=== PATIENT | male | born 1980 | race African-American/Black ===

== ENCOUNTER 2020-02-18 18:12 | Emergency (ER) | payer SELFPAY ==
[~2020-02-18] VITALS: Ht 180.3 cm; Wt 80.0 kg
[2020-02-18] MEDS ORDERED: FLUORESCEIN SODIUM 1MG/STRIP BOTHEYE ONE (18:45)
[2020-02-18 19:07] VITALS: BP 148/82
== END 2020-02-18 19:07 | disposition home or self-care (01) ==
LOC: ER 18:12
DX: H05.011 Cellulitis of right orbit (principal); Z88.1 Allergy status to other antibiotic agents
CPT/HCPCS: 99283

== ENCOUNTER 2020-03-09 20:20 | Emergency (ER) | payer MEDICAID ==
[~2020-03-09] VITALS: Ht 180.3 cm; Wt 81.0 kg
[2020-03-09 20:46] VITALS: BP 112/65
[2020-03-09] MEDS ORDERED: IBUPROFEN 800MG TABLET PO ONE (21:45)
== END 2020-03-09 22:08 | disposition home or self-care (01) ==
LOC: ER 20:20
DX: H05.011 Cellulitis of right orbit (principal); Z88.1 Allergy status to other antibiotic agents
CPT/HCPCS: 99283

== ENCOUNTER 2020-07-30 19:04 | Emergency (ER) | payer BC ==
[~2020-07-30] VITALS: Ht 180.3 cm; Wt 80.0 kg
[2020-07-30] MEDS ORDERED: IBUPROFEN 600MG TABLET PO ONE (21:30)
[2020-07-30 21:41] LABS: CLARITY URINE CLEAR (CLEAR); COLOR URINE YELLOW (YELLOW); KETONES URINE TRACE (NEGATIVE); LEUKOCYTE ESTERASE URINE NEGATIVE (NEGATIVE); NITRITE URINE NEGATIVE (NEGATIVE); OCCULT BLOOD URINE TRACE (NEGATIVE); PROTEIN URINE NEGATIVE (NEGATIVE); SPECIFIC GRAVITY URINE 1.028 (1.005-1.030); UROBILINOGEN URINE 0.2 E.U./dL (0.2-1.0)
[2020-07-30] MEDS ORDERED: IBUP-2029 MT (23:02)
[2020-07-30] MEDS ORDERED: CYCL10TA7 MT (23:02)
[2020-07-30 23:28] VITALS: BP 123/66
== END 2020-07-31 00:05 | disposition home or self-care (01) ==
LOC: ER 19:04
DX: S30.0XXA Contusion of lower back and pelvis, initial encounter (principal); R30.0 Dysuria; Z88.1 Allergy status to other antibiotic agents; W18.40XA Slipping, tripping and stumbling without falling, unspecified, initial encounter; Y93.89 Activity, other specified; Y92.89 Other specified places as the place of occurrence of the external cause; Y99.8 Other external cause status
CPT/HCPCS: 72070; 72100; 81003; 99284

== ENCOUNTER 2020-10-07 14:56 | Emergency (ER) | payer SELFPAY ==
[~2020-10-07] VITALS: Ht 180.3 cm; Wt 79.0 kg
[~2020-10-07 14:56] MED LIST: CYCL10TA7 MT; IBUP-2029 MT
[2020-10-07] MEDS ORDERED: GABA-529 PO (15:04)
[2020-10-07] MEDS ORDERED: P-EP1TBM2 MT (18:03)
[2020-10-07 18:43] VITALS: BP 127/80
== END 2020-10-07 18:44 | disposition home or self-care (01) ==
LOC: ER 14:56
DX: G62.9 Polyneuropathy, unspecified (principal); G54.0 Brachial plexus disorders; R03.0 Elevated blood-pressure reading, without diagnosis of hypertension; R94.31 Abnormal electrocardiogram [ECG] [EKG]
CPT/HCPCS: 93005; 99283

== ENCOUNTER 2020-10-27 18:44 | Emergency (ER) | payer BC ==
[~2020-10-27] VITALS: Ht 180.3 cm; Wt 81.0 kg
[~2020-10-27 18:44] MED LIST changes: +GABA-529 PO; +P-EP1TBM2 MT
[2020-10-27] MEDS ORDERED: KETOROLAC 60MG/2ML VIAL IM ONE (19:15)
[2020-10-27] MEDS ORDERED: IBUP-2029 MT (19:38)
[2020-10-27] MEDS ORDERED: CYCL10TA7 MT (19:39)
[2020-10-27 19:45] VITALS: BP 121/69
== END 2020-10-27 19:45 | disposition home or self-care (01) ==
LOC: ER 18:44
DX: M54.5 Low back pain (principal); Z88.1 Allergy status to other antibiotic agents
CPT/HCPCS: 71045; 96372; 99283; J1885

== ENCOUNTER 2020-12-04 12:05 | Emergency (ER) | payer BC ==
[~2020-12-04] VITALS: Ht 180.3 cm; Wt 78.0 kg
[2020-12-04 12:37] VITALS: BP 109/66
[2020-12-04] MEDS ORDERED: TC1U15 TP (13:07)
[2020-12-04] MEDS ORDERED: ACETAMINOPHEN 325MG TABLET PO ONE (13:15)
[2020-12-04] MEDS ORDERED: IBUPROFEN 400MG TABLET PO ONE (13:15)
== END 2020-12-04 13:58 | disposition home or self-care (01) ==
LOC: ER 12:05
DX: R21 Rash and other nonspecific skin eruption (principal); Z79.899 Other long term (current) drug therapy
CPT/HCPCS: 99283

== ENCOUNTER 2021-04-06 19:34 | Emergency (ER) | payer BC ==
[~2021-04-06] VITALS: Ht 180.3 cm; Wt 80.0 kg
[~2021-04-06 19:34] MED LIST changes: +TC1U15 TP
[2021-04-06] MEDS ORDERED: ACETAMINOPHEN 325MG TABLET PO ONE (20:00)
[2021-04-06] MEDS ORDERED: ALBU6.7H9 INH (23:14)
[2021-04-06] MEDS ORDERED: IBUP-2029 MT (23:14)
[2021-04-06 23:26] VITALS: BP 128/80
== END 2021-04-06 23:28 | disposition home or self-care (01) ==
LOC: ER 19:34
DX: B34.9 Viral infection, unspecified (principal); I10 Essential (primary) hypertension; Z20.822 Contact with and (suspected) exposure to COVID-19; Z88.1 Allergy status to other antibiotic agents; Z13.9 Encounter for screening, unspecified
CPT/HCPCS: 71045; 87426; 87804; 93005; 99285

== ENCOUNTER 2021-07-06 16:29 | Emergency (ER) | payer SELFPAY ==
[~2021-07-06] VITALS: Ht 180.3 cm; Wt 80.0 kg
[~2021-07-06 16:29] MED LIST changes: +ALBU6.7H9 INH
[2021-07-06] MEDS ORDERED: CLIN150C2 MT (18:14)
[2021-07-06] MEDS ORDERED: IBUP-2028 MT (18:14)
[2021-07-06] MEDS ORDERED: CLINDAMYCIN HCL 150MG CAPSULE PO ONE (18:15)
[2021-07-06] MEDS ORDERED: IBUPROFEN 400MG TABLET PO ONE (18:15)
[2021-07-06 19:02] VITALS: BP 108/56
== END 2021-07-06 19:04 | disposition home or self-care (01) ==
LOC: ER 16:29
DX: L03.213 Periorbital cellulitis (principal); Z88.1 Allergy status to other antibiotic agents; Z79.899 Other long term (current) drug therapy
CPT/HCPCS: 99283

== ENCOUNTER 2021-10-25 09:47 | Emergency (ER) | payer MEDICAID ==
[~2021-10-25] VITALS: Ht 180.3 cm; Wt 80.0 kg
[~2021-10-25 09:47] MED LIST changes: +CLIN150C2 MT; +CYCL10TA21 MT; -CYCL10TA7 MT; +IBUP-2028 MT
[2021-10-25 09:59] VITALS: BP 126/90
[2021-10-25 12:48] LABS: BASOPHILS % 1.1 % (0.0-2.0); EOSINOPHILS % 1.5 % (0.0-5.0); HEMATOCRIT. 47.9 % (42.0-52.0); HEMOGLOBIN. 15.8 g/dL (14.0-18.0); LYMPHOCYTES % 44.3 % (20.0-50.0); MEAN CORPUSCULAR HEMOGLOBIN 26.9 pg (28.0-32.0); MEAN CORPUSCULAR VOLUME 81.3 fL (80.0-94.0); MEAN PLATELET VOLUME 8.5 fl (7.4-10.4); NEUTROPHILS % 46.1 % (40.0-76.0); PLATELET 319 x1000/uL (130-400); RED BLOOD CELL COUNT 5.89 mill/uL (4.7-6.1); RED CELL DISTRIBUTION WIDTH 13.9 % (11.6-14.6)
[2021-10-25 12:57] LABS: CHLORIDE 99 mEq/L (98-107)
[2021-10-25] MEDS ORDERED: TC1U15 TP (13:39)
== END 2021-10-25 13:46 | disposition home or self-care (01) ==
LOC: ER 09:56
DX: R07.2 Precordial pain (principal)
CPT/HCPCS: 36415; 71045; 80053; 84484; 85025; 85379; 93005; 99285

== ENCOUNTER 2023-06-23 17:07 | Emergency (ER) | payer MEDICAID ==
[~2023-06-23] VITALS: Ht 180.3 cm; Wt 83.0 kg
[~2023-06-23 17:07] MED LIST changes: +ALBU6.7H3 INH; -ALBU6.7H9 INH; +DESL1TBM MT; -P-EP1TBM2 MT
[2023-06-23 17:34] VITALS: BP 123/74; PULSE 83; RESP 18; TEMP 98.5; O2SAT 100
[2023-06-23] MEDS: IBUPROFEN 400MG TABLET PO ONE (18:35)
== END 2023-06-23 23:11 | disposition home or self-care (01) ==
LOC: ER 17:07
DX: M79.671 Pain in right foot (principal); M25.571 Pain in right ankle and joints of right foot; Z79.899 Other long term (current) drug therapy
CPT/HCPCS: 73610; 73650; 73700; 29515; 99284; Z7610

== ENCOUNTER 2023-07-04 22:51 | Emergency (ER) | payer MEDICAID ==
[~2023-07-04] VITALS: Ht 180.3 cm; Wt 84.0 kg
[2023-07-04 23:12] VITALS: BP 134/74; PULSE 72; RESP 16; TEMP 97.8; O2SAT 100
== END 2023-07-05 01:19 | disposition home or self-care (01) ==
LOC: ER 22:51
DX: M79.606 Pain in leg, unspecified (principal); Z88.8 Allergy status to other drugs, medicaments and biological substances; W18.39XA Other fall on same level, initial encounter; Y93.89 Activity, other specified; Y92.89 Other specified places as the place of occurrence of the external cause; Y99.8 Other external cause status
CPT/HCPCS: 99281

== ENCOUNTER 2023-10-17 14:48 | Emergency (ER) | payer MEDICAID ==
[~2023-10-17] VITALS: Ht 180.3 cm; Wt 83.0 kg
[2023-10-17 14:50] VITALS: BP 132/75; RESP 16; TEMP 98.3; O2SAT 100
[2023-10-17 14:52] VITALS: PULSE 92
[2023-10-17] MEDS ORDERED: NAPR-679 MT (15:12)
[2023-10-17] MEDS ORDERED: HYDR-4001 MT (15:12)
[2023-10-17] MEDS ORDERED: PENI500T MT (15:12)
[2023-10-17] MEDS ORDERED: [UNRECOGNIZED DRUG - CODE] MT (15:16)
== END 2023-10-17 15:28 | disposition home or self-care (01) ==
LOC: ER 14:48
DX: K02.9 Dental caries, unspecified (principal); Z88.1 Allergy status to other antibiotic agents; Z79.899 Other long term (current) drug therapy
CPT/HCPCS: 99283

== ENCOUNTER 2023-12-04 05:28 | Emergency (ER) | payer OTHER, MEDICAID ==
[~2023-12-04] VITALS: Ht 175.3 cm; Wt 82.0 kg
[~2023-12-04 05:28] MED LIST changes: +HYDR-4001 MT; +NAPR-679 MT; +PENI500T MT; +[UNRECOGNIZED DRUG - CODE] MT
[2023-12-04 05:37] VITALS: O2SAT 100
[2023-12-04] MEDS: IBUPROFEN 600MG TABLET PO ONE (06:30)
[2023-12-04 07:34] VITALS: BP 121/78; PULSE 86; RESP 16; TEMP 37.00296; O2SAT 100
== END 2023-12-04 07:33 | disposition home or self-care (01) ==
LOC: ER 05:28
DX: M25.561 Pain in right knee (principal); M25.562 Pain in left knee; Z79.899 Other long term (current) drug therapy; Z88.0 Allergy status to penicillin
CPT/HCPCS: 73562; 99284

== ENCOUNTER 2024-02-07 02:07 | Emergency (ER) | payer OTHER, MEDICAID ==
[~2024-02-07] VITALS: Ht 172.7 cm; Wt 82.0 kg
[2024-02-07 02:44] VITALS: O2SAT 98
[2024-02-07 03:48] LABS: BASOPHILS % 0.9 % (0.0-2.0); EOSINOPHILS % 2.2 % (0.0-5.0); HEMATOCRIT. 41.3 % (42.0-52.0); LYMPHOCYTES % 42.7 % (20.0-50.0); MEAN CORPUSCULAR HEMOGLOBIN 27.8 pg (28.0-32.0); MEAN CORPUSCULAR HGB CONC 33.9 g/dL (31.0-37.0); MEAN CORPUSCULAR VOLUME 82.2 fL (80.0-94.0); MEAN PLATELET VOLUME 8.2 fl (7.4-10.4); MONOCYTES % 6.2 % (2.0-8.0); PLATELET 295 x1000/uL (130-400); RED BLOOD CELL COUNT 5.03 mill/uL (4.7-6.1); RED CELL DISTRIBUTION WIDTH 14.5 % (11.6-14.6); WHITE BLOOD COUNT 6.6 x1000/uL (4.5-11.0)
[2024-02-07 03:52] LABS: CHLORIDE 104 mEq/L (98-107); POTASSIUM 4.2 mEq/L (3.5-5.1); SODIUM 141 mEq/L (136-145)
[2024-02-07 03:53] LABS: CARBON DIOXIDE 33 mEq/L (21-32)
[2024-02-07 03:54] LABS: CALCIUM 9.7 mg/dL (8.7-10.4)
[2024-02-07 03:59] LABS: CREATININE 1.2 mg/dL (0.6-1.3); GLUCOSE 103 mg/dL (70-105); UREA NITROGEN BLOOD 11 mg/dL (9-23)
[2024-02-07] MEDS: KETOROLAC 15MG/ML VIAL IV ONE (04:06)
[2024-02-07] MEDS: DEXAMETHASONE 4MG/ML 1ML VIAL IV ONE (04:06)
[2024-02-07 05:43] VITALS: BP 126/77; PULSE 83; RESP 16; TEMP 36.55848; O2SAT 98
[2024-02-07] MEDS ORDERED: IOHEXOL-300 100 ML BOTTLE ONE (05:56)
== END 2024-02-07 05:46 | disposition home or self-care (01) ==
LOC: ER 02:07
DX: B34.9 Viral infection, unspecified (principal); M54.2 Cervicalgia; Z88.1 Allergy status to other antibiotic agents; Z79.899 Other long term (current) drug therapy
CPT/HCPCS: 80048; 87430; 85025; 87070; 36415; 71045; 70491; 96374; 96375; 99285; Q9967; J1100; J1885; Z7610

== ENCOUNTER 2024-06-12 15:36 | Emergency (ER) | payer OTHER, MEDICAID ==
[~2024-06-12] VITALS: Ht 180.3 cm; Wt 79.0 kg
[2024-06-12 15:47] VITALS: O2SAT 98
[2024-06-12] MEDS: KETOROLAC 30MG/ML VIAL IM ONE (16:27)
[2024-06-12] MEDS ORDERED: IBUP-2029 MT (16:28)
[2024-06-12] MEDS ORDERED: AMOX1TAB16 MT (16:28)
[2024-06-12 16:36] VITALS: BP 148/88; PULSE 70; RESP 18; TEMP 36.9; O2SAT 98
== END 2024-06-12 16:37 | disposition home or self-care (01) ==
LOC: ER 15:36
DX: S93.602A Unspecified sprain of left foot, initial encounter (principal); F12.10 Cannabis abuse, uncomplicated; Z88.1 Allergy status to other antibiotic agents; Z79.899 Other long term (current) drug therapy; W22.03XA Walked into furniture, initial encounter; Y93.89 Activity, other specified; Y92.89 Other specified places as the place of occurrence of the external cause; Y99.8 Other external cause status
CPT/HCPCS: 99283; 73630; 96372; J1885